=== PATIENT | male | born 1965 | race Asian ===

== ENCOUNTER 2016-08-21 06:16 | Day surgery (SDC) | payer OTHER ==
[2016-08-16 14:10] VITALS: BMI 28.8
[2016-08-21] MEDS ORDERED: DEXAMETHASONE SOD PHOSPHATE/PF 10 MG/ML SDV ONE (06:42)
[2016-08-21] MEDS ORDERED: MIDAZOLAM HCL 2 MG/2 ML SINGLE DOSE VIAL ONE ×3 (06:42→07:11)
[2016-08-21] MEDS ORDERED: ROPIVACAINE HCL 0.5% 30ML VIAL ONE (06:42)
[2016-08-21] MEDS ORDERED: DEXAMETHASONE SOD PHOSPHATE 4 MG/1 ML VIAL ONE (06:57)
[2016-08-21] MEDS ORDERED: ceFAZolin SODIUM 1 GM VIAL ONE (06:57)
[2016-08-21] MEDS ORDERED: LIDOCAINE HCL/PF 2% SDV 5ML VIAL ONE (06:57)
[2016-08-21] MEDS ORDERED: ONDANSETRON 4 MG/2 ML VIAL ONE (06:57)
[2016-08-21] MEDS ORDERED: ePHEDrine SULFATE 50 MG/1 ML AMPULE ONE (06:58)
[2016-08-21] MEDS ORDERED: PROPOFOL 20 ML ONE ×2 (06:58→08:19)
[2016-08-21] MEDS ORDERED: SUCCINYLCHOLINE CHLORIDE 200 MG/10 ML VIAL ONE (06:58)
[2016-08-21] MEDS ORDERED: BUPIVACAINE HCL 0.25% 125 MG/50 ML VIAL ONE (07:08)
[2016-08-21] MEDS ORDERED: DESFLURANE GAS 240 ML BOTTLE IH ONE (07:27)
[2016-08-21] MEDS ORDERED: GUM MASTIC/STORAX/MSAL/ALCOHOL 1 DRP DROPSBTL MC ONE (08:34)
[2016-08-21 09:17] VITALS: TEMP 97.5
[2016-08-21 09:46] VITALS: BP 110/72; PULSE 74
--- NOTE | 2016-08-21 10:36 | OP ---
DATE OF OPERATION: 08/21/2016 PREOPERATIVE DIAGNOSIS: Right distal radius fracture. POSTOPERATIVE DIAGNOSIS: Right distal radius fracture. OPERATIVE PROCEDURE: 1. Open reduction internal fixation of right comminuted intraarticular displaced distal radius fracture with internal fixation of 3 or more fragments. 2. Right brachioradialis tenotomy. SURGEON: Kelvin Morgan MD HAIR ASSISTANT: BRAD Garay ANESTHESIA: Regional. COMPLICATIONS: None. ESTIMATED BLOOD LOSS: Minimal. INDICATIONS FOR PROCEDURE: The patient is a 50-year-old male with the above findings, indicated for operative treatment. The risks, benefits, and alternatives were discussed with the patient at length, and proper informed consent was obtained. DESCRIPTION OF PROCEDURE: After proper identification of the patient and the correct operative site, the patient was brought to the operating room and placed supine on the operating table with prominences well padded. Sedation was given by the anesthesiologist. Regional anesthesia was given. Right upper extremity was prepped and draped in the usual sterile fashion. Intravenous antibiotics were given at the time the procedure was performed. Esmarch bandage to exsanguinate the right upper extremity. Tourniquet inflated to 250 mmHg. A longitudinal incision was made over the flexor carpi radialis tendon. Incision was taken sharply through the skin with blunt and sharp dissection through subcutaneous tissues. Hemostasis was achieved with bipolar electrocautery. Flexor carpi radialis tendon along with the contents of the carpal canal were bluntly and gently retracted in ulnarward direction for the remainder of the procedure. The pronator quadratus was then divided longitudinally and elevated off the distal radius. The fracture was then identified and found to be highly comminuted with radial styloid fragment. This was mobilized by releasing the brachioradialis using a subperiosteal brachioradialis tenotomy, which was necessary for this procedure. The fracture fragments were then reduced into satisfactory position and held with an Acumed Acu-Loc 2 distal radius plate. This provided secure stable fixation confirmed radiographically in multiple planes. Proper placement and sizing of all hardware, as well as reduction of fracture were also confirmed. Scapholunate interval and distal radioulnar joint were stressed, and there was no instability. Wound was irrigated with saline and repaired in layers including the pronator quadratus with 4-0 Vicryl and 4-0 Monocryl sutures. Steri-Strips, sterile dressings, and volar wrist splint were placed. The patient was reversed from anesthesia and brought to the recovery room in stable condition. She tolerated the procedure well. Tomasz Pace, the assistant professor of religion, was integral throughout this procedure. This procedure could not have been performed without a skilled operative assistant professor of religion. KELVIN MORGAN M.D. [id number]
[2016-08-21] MEDS ORDERED: LACTATED RINGERS SOLUTION 1,000 ML IV SCH (11:00)
[2016-08-21] MEDS ORDERED: ACETAMINOPHEN 325 MG TABLET (FP) PO PRN (11:50)
[2016-08-21] MEDS ORDERED: oxyCODONE HCL 5 MG TABLET PO PRN ×2 (11:51→11:52)
[2016-08-21] MEDS ORDERED: ONDANSETRON 4 MG/2 ML VIAL IVPUSH PRN (11:51)
== END 2016-08-21 09:55 | disposition home or self-care (01) ==
LOC: FASU 06:16
PROVIDERS: ATTEND Orthopaedic Surgery Hand Surgery
PROC: 0LN50ZZ Release Right Lower Arm and Wrist Tendon, Open Approach (ICD-10-PCS; 2016-08-21)
PROC: 0PSH04Z Reposition Right Radius with Internal Fixation Device, Open Approach (ICD-10-PCS; principal; 2016-08-21 08:00)
DX: S52.531A Colles' fracture of right radius, initial encounter for closed fracture (principal); X58.XXXA Exposure to other specified factors, initial encounter; Y93.9 Activity, unspecified; Y92.9 Unspecified place or not applicable
CPT/HCPCS: 73110-TC-RT